=== PATIENT | female | born 2000 | race African-American/Black ===

== ENCOUNTER 2019-09-25 14:15 | Emergency (ER) | payer OTHER ==
[2019-09-25 14:37] VITALS: BP 104/62
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
== END 2019-09-25 16:32 | disposition left against medical advice (07) ==
LOC: ED 14:15
DX: M54.2 Cervicalgia (principal); M54.6 Pain in thoracic spine; V49.49XA Driver injured in collision with other motor vehicles in traffic accident, initial encounter; Y93.89 Activity, other specified; Y92.488 Other paved roadways as the place of occurrence of the external cause; Y99.8 Other external cause status
CPT/HCPCS: 99282